=== PATIENT | female | born 1940 | race Caucasian/White ===

== ENCOUNTER 2018-06-22 14:48 | Emergency (ER) | payer MEDICARE, BC ==
[2013-11-08 14:31] VITALS: Wt 154.2 kg
[~2018-06-22 14:48] MED LIST changes: -ACET-1966 PO; -ASCO-182 PO; -CARV25TA78 PO; -CHOL10005 PO; -MULT1CAP59 PO; -PREG150C33 PO; -WARF1TAB15 PO; -WARFARIN SODIUM PO
[2018-06-22 14:51] VITALS: BP 161/84
[2018-06-22] MEDS ORDERED: KETOROLAC 60 MG/2 ML VIAL IM ONE (14:55)
--- NOTE | 2018-06-22 15:03 | ER Report ---
History and Physical Time Seen By MD: 15:01 Hx. of Stated Complaint: PATIENT REPORTS BACK PAIN FOR 1 WEEK. REPORTS PAIN HAS BEEN GETTING WORSE AND STARTED WHEN SHE WAS LIFTING SOMETHING WHILE CLEANING THE HOUSE. PATIENT RECIEVED 2MG IV ATIVAN FROM EMS AND REPORTS IMPROVEMENT OF SYMPTOMS HPI/ROS CHIEF COMPLAINT: Acute on chronic back pain HISTORY OF PRESENT ILLNESS: 78-year-old female long history of chronic back and pain disorders including polymyalgia rheumatica fibromyalgia and other chronic conditions currently being followed as an outpatient has been weaned off significant amounts of pain medication comes in today with a 24 hours of exacerbation after Superbowl Wednesday says that since then she's been having trouble ambulating getting around pain is localized to her low back no urinary bladder bowel incontinence and numbness of subtle paresthesias no chest pain or shortness of breath no recent falls history of trauma spoke directly to primary care doc will consulted with her history I will go ahead and I work her up in the ED for acute on chronic back pain REVIEW OF SYSTEMS: Respiratory: No cough, no dyspnea. Cardiovascular: No chest pain, no palpitations. Gastrointestinal: No vomiting, no abdominal pain. Musculoskeletal: Low back pain Remainder of the 14 system rev: Yes Allergies: Coded Allergies: codeine (Verified Allergy, Mild, 11/27/13) iodine (Verified Allergy, Mild, 11/27/13) morphine (Verified Allergy, Mild, 11/27/13) Home Meds Active Scripts [Warfarin Sod] 2 MG TAB No Conflict Check, 2 MG PO QDAY@13, TAB Prov:MURTAZA HARVEY DO 11/08/13 [Pregabalin] 50 MG CAP No Conflict Check, 150 MG PO TID, CAP Prov:MURTAZA HARVEY DO 11/08/13 Carvedilol (CARVEDILOL) 6.25 Mg Tab, 6.25 MG PO BID, #60 TAB Prov:MURTAZA HARVEY DO 11/08/13 Reported Medications Venlafaxine Hcl (VENLAFAXINE HCL ER) 37.5 Mg Cap.er.24h, 37.5 MG PO QDAY 11/08/13 Discontinued Scripts [Warfarin Sod] 1 MG TAB No Conflict Check, 2 MG PO QDAY@13, TAB Prov:ESME BELLO MD 11/22/13 [Venlafaxine Hcl] 37.5 MG CAPCR No Conflict Check, 37.5 MG PO QDAY Prov:ESME BELLO MD 11/22/13 [Tramadol Hcl] 50 MG TAB No Conflict Check, 50 MG PO Q6H PRN for PAIN, TAB Prov:ESME BELLO MD 11/22/13 [Pregabalin] 50 MG CAP No Conflict Check, 150 MG PO TID, CAP Prov:ESME BELLO MD 11/22/13 [Oxycodone Hcl] 20 MG TABCR No Conflict Check, 20 MG PO BID PRN for PAIN Prov:ESME BELLO MD 11/22/13 [Oxycodone Hcl] 5 MG CAP No Conflict Check, 5-10 MG PO Q6H PRN for PAIN, CAP Prov:ESME BELLO MD 11/22/13 Menthol/Methyl Salicylate (BENGAY GREASELESS CREAM) 57 Gm Oint, 0 GM TP BID PRN for arthralgias, #1 TUBE Prov:ESME BELLO MD 11/22/13 Carvedilol (CARVEDILOL) 3.125 Mg Tab, 3.125 MG PO BID, #60 TAB Prov:ESME BELLO MD 11/22/13 Allopurinol (ZYLOPRIM 300 MG TAB (OR EQUIV)) 300 Mg Tab, 300 MG PO QDAY, #30 TAB Prov:ESME BELLO MD 11/22/13 [Trimethoprim/Sulfamethoxazole] 1 EACH TAB No Conflict Check, 1 EACH PO BID, TAB Prov:MURTAZA HARVEY DO 11/08/13 [Nystatin] 15 GM CR No Conflict Check, 0 GM TP TID Prov:MURTAZA HARVEY DO 11/08/13 [Oxycodone Hcl] 5 MG CAP No Conflict Check, 10 MG PO QID PRN for PAIN, CAP Prov:MURTAZA HRAVEY DO 11/08/13 [Hydrochlorothiazide] 25 MG TAB No Conflict Check, 25 MG PO QDAY, TAB Prov:MURTAZA HARVEY DO 11/08/13 Reviewed Nurses Notes: Yes Old Medical Records Reviewed: Yes Hx Smoking: No Smoking Status: Never Smoker Exposure to Second Hand Smoke?: No Hx Substance Use Disorder: No Hx Alcohol Use: No Constitutional Vital Sign - Last 24 Hours 06/22/18 14:51 Temp 97.9 Pulse 70 Resp 20 B/P (MAP) 161/84 Pulse Ox 95 O2 Delivery Nasal Cannula Physical Exam General Appearance: [The patient is alert, has no immediate need for airway protection and no current signs of toxicity.] Appears uncomfortable Eyes: Pupils equal and round no injection. Respiratory: Chest is non tender, lungs are clear to auscultation. Cardiac: regular rate and rhythm [ ] Gastrointestinal: Abdomen is soft and non tender, no masses, bowel sounds normal. Musculoskeletal: Low back examination difficult to appreciate some mild tenderness to palpation to the lumbar area unable to do leg lifts due to patient's discomfort and complaints to the exam Neck is supple and non tender. Extremities have full range of motion and are non tender. Skin: No rashes or lesions. [ ] DIFFERENTIAL DIAGNOSIS: After history and physical exam differential diagnosis was considered for acute and chronic low back pain fracture dislocation subluxation Medical Decision Making Data Points Laboratory Hematology Test 06/22/18 16:50 Urine Color Yellow Urine Clarity Clear Urine pH 5.0 pH (4.8-9.5) Urine Specific [place] 1.015 Urine Protein Negative mg/dL (NEGATIVE) Urine Glucose (UA) Negative mg/dL (NEGATIVE) Urine Ketones Negative mg/dL (NEGATIVE) Urine Blood Moderate (NEGATIVE) Urine Nitrite Negative (NEGATIVE) Urine Bilirubin Negative (NEGATIVE) Urine Urobilinogen Negative mg/dL (0.2-1.9) Urine Leukocyte Esterase Negative (NEGATIVE) Urine RBC 83 /HPF (0-2/HPF) Urine WBC 4 /HPF (0-5/HPF) Urine Squamous Epithelial Cells Many /LPF (NONE-FEW) Urine Bacteria Negative /HPF (NONE-FEW) Urine Hyaline Casts Few /LPF (NONE-FEW) Urine Mucus None /HPF (NONE-FEW) Chemistry Test 06/22/18 16:50 Urine Color Yellow Urine Clarity Clear Urine pH 5.0 pH (4.8-9.5) Urine Specific [place] 1.015 Urine Protein Negative mg/dL (NEGATIVE) Urine Glucose (UA) Negative mg/dL (NEGATIVE) Urine Ketones Negative mg/dL (NEGATIVE) Urine Blood Moderate (NEGATIVE) Urine Nitrite Negative (NEGATIVE) Urine Bilirubin Negative (NEGATIVE) Urine Urobilinogen Negative mg/dL (0.2-1.9) Urine Leukocyte Esterase Negative (NEGATIVE) Urine RBC 83 /HPF (0-2/HPF) Urine WBC 4 /HPF (0-5/HPF) Urine Squamous Epithelial Cells Many /LPF (NONE-FEW) Urine Bacteria Negative /HPF (NONE-FEW) Urine Hyaline Casts Few /LPF (NONE-FEW) Urine Mucus None /HPF (NONE-FEW) Urinalysis Test 06/22/18 16:50 Urine Color Yellow Urine Clarity Clear Urine pH 5.0 pH (4.8-9.5) Urine Specific [place] 1.015 Urine Protein Negative mg/dL (NEGATIVE) Urine Glucose (UA) Negative mg/dL (NEGATIVE) Urine Ketones Negative mg/dL (NEGATIVE) Urine Blood Moderate (NEGATIVE) Urine Nitrite Negative (NEGATIVE) Urine Bilirubin Negative (NEGATIVE) Urine Urobilinogen Negative mg/dL (0.2-1.9) Urine Leukocyte Esterase Negative (NEGATIVE) Urine RBC 83 /HPF (0-2/HPF) Urine WBC 4 /HPF (0-5/HPF) Urine Squamous Epithelial Cells Many /LPF (NONE-FEW) Urine Bacteria Negative /HPF (NONE-FEW) Urine Hyaline Casts Few /LPF (NONE-FEW) Urine Mucus None /HPF (NONE-FEW) ED Course/Re-evaluation ED Course ED clinical course 78-year-old female who comes in with acute on chronic back discomfort x-rays show no fractures dislocation or subluxation spoke to primary care will see her 1st thing tomorrow I confirm that she has a safe way to get home and she has a safe environment at home and she has family with her she's agreeable to this plan I will check UA before discharge patient we diagnosed with acute on chronic back discomfort x-rays did show a degenerative disc disease spondylosis and chronic changes with nothing acute Decision to Disposition Date: Jun 22, 2018 Decision to Disposition Time: 16:30 Depart Departure Latest Vital Signs Vital Signs Date Time Temp Pulse Resp B/P (MAP) Pulse Ox O2 Delivery O2 Flow Rate FiO2 06/22/18 14:51 97.9 70 20 161/84 95 Nasal Cannula Impression: Primary Impression: Acute exacerbation of chronic low back pain Condition: Improved Disposition: HOME OR SELF-CARE Referrals: MURTAZA MEJÍA MD (PCP) 1 Day Patient Instructions: Chronic Back Pain (ED) MARY BETH MARLEY MD Jun 22, 2018 15:03
[2018-06-22] MEDS ORDERED: KETOROLAC 30 MG/ML VIAL IVP ONE (15:40)
--- NOTE | 2018-06-22 16:14 | RADIOLOGY IMAGING REPORT ---
FACILITY: [facility] PATIENT NAME: Chastity Barrios : 1940 MR: [id number] V: [id number] EXAM DATE: ORDERING PHYSICIAN: MARY BETH MARLEY TECHNOLOGIST: Location: [facility] Patient: Chastity Barrios : 1940 Visit/Account:[id number] Date of Sevice: 06/22/2018 Exam type: L-SPINE 2 OR 3 VIEW History: Low back pain x4 days, Comparison: CT lumbar spine March 24, 2011. Findings: The study is very limited due to patient's large body habitus. There appear to be multilevel spondyl otic changes most prominent in the lower lumbar spine. On the lateral view of the lower lumbar verte bra cannot be imaged due to overlapping soft tissues. Incidentally noted is moderate gaseous distent ion of the colon. There are severe degenerative changes of both hip joints IMPRESSION: 1. There is extremely limited due to patient's large body habitus. There appear to multilevel spond ylotic changes however on the lateral view the lower lumbar vertebra cannot be imaged due to overlapp ing soft tissues Severe degenerative changes of both hip joints Incidentally noted is moderate gaseous distention of the colon Report Dictated By: Stacy García MD at 06/22/2018 4:06 PM Report E-Signed By: Stacy García MD at 06/22/2018 4:09 PM WSN:[id number]
== END 2018-06-22 18:00 | disposition home or self-care (01) ==
LOC: ER 14:56
DX: M54.5 Low back pain (principal); G89.29 Other chronic pain
CPT/HCPCS: 72100; 81001; 96374; 99283; A4353; J1885

== ENCOUNTER → 2018-06-22 | Outpatient (CLI) | payer MEDICARE, BC ==
[2013-11-08 14:31] VITALS: BMI 53.3
[~2018-06-22] MED LIST: ACE325 PO; ACET-1966 PO; ALL300 PO; AMLO-127 PO; AMLO-98 PO; AMLO1TAB PO; ASC500 PO; ASCO-182 PO; BENGAY TP; CAR3.125 PO; CAR6.25 PO; CARV25TA78 PO; CARV6.2574 PO; CHOL100011 FT; CHOL10005 PO; CIPR-212 PO; DEX1 PO; ENAL20TA99 PO; ERG400 PO; FURO-43 PO; Hydrochlorothiazide PO; LID5T TOP; LISI-355 PO; METH4TAB57 PO; METXL50 PO; MILN50TA6 PO; MIR PO; MOM PO; MULT-820 PO; MULT1CAP59 PO; MULTI VIT; NOR25 PO; NYST1POW MC; Nystatin TP; OXYC10TA67 PO; Oxycodone Hcl PO; PER PO; PREG150C33 PO; PREG150C34 PO; Pregabalin PO; TRA50 PO; TRAM-420 PO; TRIC15T TOP; Tramadol Hcl PO; Trimethoprim/Sulfamethoxazole PO; VENL37.514 FT; VENL37.53 PO; Venlafaxine Hcl PO; WAR5 PO; WARF1TAB15 PO; WARF3TAB36 PO; WARFARIN SODIUM PO; Warfarin Sod PO; [UNRECOGNIZED DRUG - CODE]
== END ==
LOC: AMB 14:19
PROVIDERS: ATTEND Nurse Practitioner
DX: M54.5 Low back pain (principal); R09.02 Hypoxemia
CPT/HCPCS: A0425; A0427

== ENCOUNTER → 2018-06-22 | Outpatient (CLI) | payer MEDICARE, BC ==
[2018-06-30 10:19] VITALS: BMI 62.6
== END ==
LOC: AMB 17:48
PROVIDERS: ATTEND Nurse Practitioner
DX: M54.9 Dorsalgia, unspecified (principal); E66.9 Obesity, unspecified
CPT/HCPCS: A0425; A0428

== ENCOUNTER → 2018-06-28 | Outpatient (CLI) | payer MEDICARE, BC ==
[~2018-06-28] MED LIST changes: +ACET-1966 PO; +ASCO-182 PO; +CARV25TA78 PO; +CEPH500T7 PO; +CHOL10005 PO; +CYCL10TA29 PO; +DOCU-416 PO; +ENOX40DI9 SC; +MULT1CAP59 PO; +NYST15PO12 TP; +PREG150C33 PO; +WARF1TAB15 PO; +WARFARIN SODIUM PO
[2018-07-04 12:32] VITALS: BMI 62.6
== END ==
LOC: AMB 18:39
PROVIDERS: ATTEND Nurse Practitioner
DX: M54.9 Dorsalgia, unspecified (principal); R09.02 Hypoxemia; R53.1 Weakness; E66.9 Obesity, unspecified; Z74.01 Bed confinement status
CPT/HCPCS: A0425; A0429

== ENCOUNTER → 2018-07-07 | Outpatient (CLI) | payer MEDICARE, BC ==
[2018-07-04 12:32] VITALS: BMI 62.6
== END ==
LOC: AMB 13:25
PROVIDERS: ATTEND Nurse Practitioner
DX: M54.9 Dorsalgia, unspecified (principal)
CPT/HCPCS: A0425; A0428

== ENCOUNTER 2018-09-25 20:54 | Inpatient (IN) | payer MEDICARE, BC ==
[~2018-09-25] VITALS: Ht 167.6 cm; Wt 176.4 kg
[~2018-09-25 20:54] MED LIST changes: -NITR50CA35 PO
--- NOTE | 2018-09-25 21:19 | ER Report ---
History and Physical Time Seen By MD: 21:19 Hx. of Stated Complaint: Pt. had a recent UTI, still having symptoms. Hypoxic when delimer arrived. 89% on 4Lnc. 95% on NRB 15L. Also complaining of right knee pain. Temp in triage 101.9 orally. Pt's reports she is confused, and that isn't normal for her. HPI/ROS CHIEF COMPLAINT: Short of breath HISTORY OF PRESENT ILLNESS: This is a 78-year-old female. She is brought to the ER by EMS. She is having significant weakness. Very short of breath today at home. Recently in the hospital and treated for UTI. Finished her antibiotic and is now starting on Macrobid 50 mg once a day. Still having urinary frequency, and urgency. Yesterday she was very weak and fell and has pain in her right knee and right hip. She is also complaining of some back pain which has been impro ving and this is from recent compression fractures in the lumbar spine. EMS was called to her home because of the shortness of breath and weakness and found her to be hypoxic. She is usually on 4 L by nasal cannula and was found to be in the 80s. She is 95% on a nonrebreather at 15 L when EMS brought her in. This was decreased to 10 L and she was maintaining her sats about 94%. Temperature of 101.9 orally on triage. also reports that she has been having brief episodes of confusion at home. She has felt flushed at times and has been having subjective fevers as well as the fever found here in the ER. She has a mild cough. She denies any chest pain. She is had a little bit of nausea but no vomiting. REVIEW OF SYSTEMS: Constitutional: As above. Cannot stand or transfer at this time. Eyes: No vision changes. ENT: No sore throat. No congestion. Cardiovascular: No chest pain. No palpitations. Respiratory: As above. Gastrointestinal: No abdominal pain. Genitourinary: As above. Musculoskeletal: As above. Skin: Excoriations of the groin and perineal area, very tender. Neurological: As above. Allergies: Coded Allergies: codeine (Verified Allergy, Mild, 09/25/18) iodine (Verified Allergy, Mild, 09/25/18) morphine (Verified Allergy, Mild, 09/25/18) Home Meds Active Scripts Tramadol Hcl (TRAMADOL HCL) 50 Mg Tablet, 50 MG PO Q6H PRN for PAIN, #60 TAB Prov:ADILENE ANGELES [facility] 07/07/18 Nystatin (NYAMYC) 15 Gm Powder, 1 GM TP BID, #30 GM Prov:ADILENE ANGELES [facility] 07/07/18 Cyclobenzaprine Hcl (CYCLOBENZAPRINE HCL) 10 Mg Tablet, 5 MG PO Q8H PRN for MUSCLE SPASMS, #20 TAB Prov:ADILENE ANGELES [facility] 07/07/18 Reported Medications Nitrofurantoin Macrocrystal (NITROFURANTOIN) 50 Mg Capsule, 50 MG PO QDAY, CAPSULE 09/26/18 Cholecalciferol (Vitamin D3) (VITAMIN D3) 1,000 Unit Tablet, 2000 UNIT PO QDAY, TAB 06/29/18 Ascorbic Acid (VITAMIN C) 500 Mg Tablet, 500 MG PO QDAY, TAB 06/29/18 Multivitamin (MULTIVITAMINS) 1 Each Capsule, 1 EACH PO QDAY, CAPSULE 06/29/18 Carvedilol (CARVEDILOL) 25 Mg Tablet, 25 MG PO BID, #10 TAB 06/29/18 Warfarin Sodium (WARFARIN SODIUM) 1 Mg Tablet, 1 MG PO QDAY, TAB 06/29/18 Pregabalin (LYRICA) 150 Mg Capsule, 150 MG PO TID, CAPSULE 06/29/18 Venlafaxine Hcl (VENLAFAXINE HCL ER) 37.5 Mg Cap.er.24h, 37.5 MG PO QDAY 11/08/13 Discontinued Reported Medications Cephalexin 500 Mg Tab (KEFLEX 500 MG TAB) 500 Mg Tablet, 500 MG PO BID, #28 TAB Starting on July 14 take twice a day 07/07/18 Cephalexin 500 Mg Tab (KEFLEX 500 MG TAB) 500 Mg Tablet, 500 MG PO QID for 7 Days, TAB Take Four times a day for 7 days then twice a day thereafter 07/07/18 Discontinued Scripts Docusate Sodium (COLACE) 100 Mg Capsule, 100 MG PO BID, #60 CAPSULE Prov:ADILENE ANGELES [facility] 07/07/18 Enoxaparin Sodium (ENOXAPARIN SODIUM) 40 Mg/0.4 Ml Disp.syrin, 40 MG SC QDAY, #5 SYR Prov:ADILENE ANGELES [facility] 07/07/18 Reviewed Nurses Notes: Yes Hx Smoking: No Smoking Status: Never Smoker Exposure to Second Hand Smoke?: No Hx Substance Use Disorder: No Hx Alcohol Use: No Constitutional Vital Sign - Last 24 Hours 09/25/18 09/25/18 09/25/18 09/25/18 21:01 21:01 21:06 21:09 Temp 101.9 Pulse 90 92 Resp 28 15 B/P (MAP) 117/75 117/75 (89) Pulse Ox 94 O2 Delivery Non-Rebreather O2 Flow Rate 10.0 09/25/18 09/25/18 09/25/18 09/25/18 21:24 21:30 21:39 21:54 Pulse 91 87 85 Resp 23 23 16 B/P (MAP) 115/65 (82) Pulse Ox 95 95 95 09/25/18 09/25/18 09/25/18 09/25/18 22:00 22:00 22:00 22:09 Pulse 84 89 Resp 22 14 B/P (MAP) 113/67 (82) Pulse Ox 95 91 O2 Delivery Non-Rebreather O2 Flow Rate 10.0 09/25/18 09/25/18 09/25/18 09/25/18 22:09 22:24 22:39 22:44 Pulse 86 84 90 93 Resp 22 22 16 13 Pulse Ox 94 95 95 09/25/18 09/25/18 09/25/18 09/25/18 22:59 23:14 23:29 23:30 Pulse 89 79 79 Resp 26 19 29 B/P (MAP) ???/??? (5195) Pulse Ox 94 91 94 09/25/18 09/25/18 09/25/18 09/26/18 23:44 23:54 23:59 00:00 Pulse ??? 73 Resp 22 B/P (MAP) 123/75 (91) 122/63 (82) Pulse Ox 95 09/26/18 09/26/18 09/26/18 09/26/18 00:14 00:29 00:30 00:30 Temp 98.3 Pulse 74 75 Resp 20 15 B/P (MAP) 123/68 (86) Pulse Ox 95 94 5/13/19 5/13/19 5/13/19 5/13/19 00:35 00:40 00:45 01:00 Pulse 76 72 75 Resp 17 24 21 B/P (MAP) 127/84 (98) Pulse Ox 95 86 91 09/26/18 09/26/18/09/26/18 01:05 01:10 01:15 01:20 Pulse 70 70 70 69 Resp 21 22 21 20 Pulse Ox 94 95 95 95 09/26/18//09/26/18 01:25 01:30 01:35 01:40 Pulse 69 68 69 76 Resp 16 18 20 B/P (MAP) 132/74 (93) Pulse Ox 95 95 95 09/26/18 09/26/18/09/26/18 01:45 01:55 02:00 02:05 Pulse 68 67 73 73 Resp 15 18 21 17 B/P (MAP) 142/91 (108) Pulse Ox 94 95 90 94 09/26/18 09/26/18/09/26/18 02:15 02:20 02:25 02:30 Pulse 70 70 71 73 Resp 14 15 20 30 B/P (MAP) 132/79 (96) Pulse Ox 96 93 94 90 09/26/18//09/26/18 02:40 02:50 02:55 03:00 Pulse 71 71 72 70 Resp 8 14 30 15 B/P (MAP) 119/73 (88) Pulse Ox 93 94 92 91 09/26/18 09/26/18/09/26/18 03:05 03:10 03:15 03:20 Pulse 71 63 68 69 Resp 11 19 27 14 Pulse Ox 92 92 93 92 09/26/18//09/26/18 03:25 03:30 03:35 03:40 Pulse 69 67 69 77 Resp 14 19 8 27 B/P (MAP) 124/75 (91) 115/87 (96) 110/88 (95) Pulse Ox 93 94 90 94 09/26/18 09/26/18/09/26/18 03:45 03:50 03:55 04:00 Pulse 75 63 64 66 Resp 34 19 12 20 B/P (MAP) 106/62 (77) 98/63 (75) 107/64 (78) 82/67 (72) Pulse Ox 90 86 91 94 09/26/18 09/26/18 09/26/18 09/26/18 04:05 04:10 04:15 04:20 Pulse 68 65 66 67 Resp 30 27 18 23 B/P (MAP) 122/67 (85) 118/87 (97) 114/79 (91) 121/78 (92) Pulse Ox 94 95 93 94 09/26/18 09/26/18 09/26/18 09/26/18 04:25 04:30 04:35 04:45 Pulse 65 68 64 67 Resp 12 11 14 B/P (MAP) 113/82 (92) 121/79 (93) Pulse Ox 93 95 95 09/26/18 09/26/18 09/26/18 09/26/18 04:50 04:55 05:00 05:05 Pulse 70 68 67 66 Resp 9 12 14 22 B/P (MAP) 129/91 (104) Pulse Ox 96 95 90 95 09/26/18 09/26/18 09/26/18 09/26/18 05:10 05:15 05:20 05:25 Pulse 66 68 69 67 Resp 17 15 12 19 Pulse Ox 96 96 96 97 09/26/18 09/26/18 05:30 05:35 Pulse 69 68 Resp 11 18 B/P (MAP) 131/106 (114) Pulse Ox 86 95 Intake and Output 09/25/18 09/25/18 09/26/18 15:00 23:00 07:00 Output Total 350 ml Balance -350 ml Physical Exam General Appearance: The patient is alert. No acute distress. Extremely weak. Morbidly obese. Eyes: Pupils are equal, round. No pallor, injection or icterus. ENT: Mucous membranes are dry. Otherwise normal oral mucosa. Posterior oropharynx is normal. Normal tympanic membranes and canals. Neck: Supple and non tender. Respiratory: Lungs are diminished, there are rhonchi throughout, more diminished in the bases. She seems to be breathing easier on the nonrebreather with less work. I do not see any accessory muscle use. Cardiovascular: Regular rate and rhythm. No murmurs, gallops or rubs. Normal capillary refill. Has edema in the legs. Gastrointestinal: Abdomen without any focal tenderness on palpation. Nondistended. Normal active bowel sounds. Genitourinary: Excoriation and bleeding in the skin folds and perineal area. Neurological: Alert and oriented x3. No current confusion. Skin: Warm and dry. Excoriation is noted. Musculoskeletal: Significant pain in the right hip and right knee with any movement. Is unable to bear weight. Has some pain in the lower back but that has been improving and appears due to her compression fractures. Full range of motion. DIFFERENTIAL DIAGNOSIS: After history and physical exam, differential diagnosis was considered for patient with shortness of breath and hypoxia, fevers, some episodes of confusion today, and recent urinary problems. Medical Decision Making Data Points Result Diagram: 09/25/18210609/25/182106 Laboratory Hematology Test 09/25/18 00:00 09/25/18 21:07 09/25/18 22:13 09/26/18 03:48 Lactate 1.1 mmol/L (0.7-2.1) Red Blood Count 4.70 M/uL (4.17-5.56) Mean Corpuscular Volume 95.7 fL (80.0-96.0) Mean Corpuscular Hemoglobin 32.5 pg (26.0-33.0) Mean Corpuscular Hemoglobin Concent 33.9 g/dL (32.0-36.0) Red Cell Distribution Width 14.1 % (11.5-14.5) Mean Platelet Volume 9.0 fL (7.2-11.1) Neutrophils (%) (Auto) 77.5 % (39.4-72.5) Lymphocytes (%) (Auto) 10.3 % (17.6-49.6) Monocytes (%) (Auto) 9.5 % (4.1-12.4) Eosinophils (%) (Auto) 2.3 % (0.4-6.7) Basophils (%) (Auto) 0.4 % (0.3-1.4) Nucleated RBC Relative Count (auto) 0.1 /100WBC Neutrophils # (Auto) 8.1 K/uL (2.0-7.4) Lymphocytes # (Auto) 1.1 K/uL (1.3-3.6) Monocytes # (Auto) 1.0 K/uL (0.3-1.0) Eosinophils # (Auto) 0.2 K/uL (0.0-0.5) Basophils # (Auto) 0.0 K/uL (0.0-0.1) Nucleated RBC Absolute Count (auto) 0.02 K/uL Prothrombin Time 20.0 seconds (12.0-14.4) Prothromb Time International Ratio 1.68 Sodium Level 136 mmol/L (137-145) Potassium Level 4.6 mmol/L (3.5-5.0) Chloride Level 101 mmol/L (98-107) Carbon Dioxide Level 31 mmol/L (22-31) Blood Urea Nitrogen 13 mg/dl (7-18) Creatinine 0.80 mg/dl (0.52-1.04) Glomerular Filtration Rate Calc > 60.0 Random Glucose 128 mg/dl (75-110) Calcium Level 8.4 mg/dl (8.4-10.2) Magnesium Level 1.9 mg/dl (1.7-2.2) Total Bilirubin 0.5 mg/dl (0.2-1.3) Aspartate Amino Transf (AST/SGOT) 43 U/L (0-35) Alanine Aminotransferase (ALT/SGPT) 25 U/L (0-56) Alkaline Phosphatase 119 U/L (0-126) B-Type Natriuretic Peptide 268 pg/ml (0-100) Total Protein 7.4 g/dl (6.3-8.2) Albumin 3.6 g/dl (3.5-5.0) Influenza Virus Type A (PCR) Negative (NEGATIVE) Influenza Virus Type B (PCR) Negative (NEGATIVE) Urine Color Yellow Urine Clarity Clear Urine pH 5.0 pH (4.8-9.5) Urine Specific [place] 1.015 Urine Protein 30 mg/dL (NEGATIVE) Urine Glucose (UA) Negative mg/dL (NEGATIVE) Urine Ketones Trace mg/dL (NEGATIVE) Urine Blood Small (NEGATIVE) Urine Nitrite Negative (NEGATIVE) Urine Bilirubin Negative (NEGATIVE) Urine Urobilinogen Negative mg/dL (0.2-1.9) Urine Leukocyte Esterase Negative (NEGATIVE) Urine RBC 2 /HPF (0-2/HPF) Urine WBC 1 /HPF (0-5/HPF) Urine Squamous Epithelial Cells Few /LPF (NONE-FEW) Urine Transitional Epithelial Cells Few /LPF (NONE-FEW) Urine Bacteria Negative /HPF (NONE-FEW) Urine Mucus Few /HPF (NONE-FEW) Test 09/26/18 04:48 Troponin I < 0.012 ng/ml Chemistry Test 09/25/18 00:00 09/25/18 21:07 09/25/18 22:13 09/26/18 03:48 Lactate 1.1 mmol/L (0.7-2.1) White Blood Count 10.5 k/uL (4.5-11.0) Red Blood Count 4.70 M/uL (4.17-5.56) Hemoglobin 15.3 g/dL (12.0-16.0) Hematocrit 45.0 % (34.0-47.0) Mean Corpuscular Volume 95.7 fL (80.0-96.0) Mean Corpuscular Hemoglobin 32.5 pg (26.0-33.0) Mean Corpuscular Hemoglobin Concent 33.9 g/dL (32.0-36.0) Red Cell Distribution Width 14.1 % (11.5-14.5) Platelet Count 145 K/uL (150-450) Mean Platelet Volume 9.0 fL (7.2-11.1) Neutrophils (%) (Auto) 77.5 % (39.4-72.5) Lymphocytes (%) (Auto) 10.3 % (17.6-49.6) Monocytes (%) (Auto) 9.5 % (4.1-12.4) Eosinophils (%) (Auto) 2.3 % (0.4-6.7) Basophils (%) (Auto) 0.4 % (0.3-1.4) Nucleated RBC Relative Count (auto) 0.1 /100WBC Neutrophils # (Auto) 8.1 K/uL (2.0-7.4) Lymphocytes # (Auto) 1.1 K/uL (1.3-3.6) Monocytes # (Auto) 1.0 K/uL (0.3-1.0) Eosinophils # (Auto) 0.2 K/uL (0.0-0.5) Basophils # (Auto) 0.0 K/uL (0.0-0.1) Nucleated RBC Absolute Count (auto) 0.02 K/uL Prothrombin Time 20.0 seconds (12.0-14.4) Prothromb Time International Ratio 1.68 Glomerular Filtration Rate Calc > 60.0 Calcium Level 8.4 mg/dl (8.4-10.2) Magnesium Level 1.9 mg/dl (1.7-2.2) Total Bilirubin 0.5 mg/dl (0.2-1.3) Aspartate Amino Transf (AST/SGOT) 43 U/L (0-35) Alanine Aminotransferase (ALT/SGPT) 25 U/L (0-56) Alkaline Phosphatase 119 U/L (0-126) B-Type Natriuretic Peptide 268 pg/ml (0-100) Total Protein 7.4 g/dl (6.3-8.2) Albumin 3.6 g/dl (3.5-5.0) Influenza Virus Type A (PCR) Negative (NEGATIVE) Influenza Virus Type B (PCR) Negative (NEGATIVE) Urine Color Yellow Urine Clarity Clear Urine pH 5.0 pH (4.8-9.5) Urine Specific [place] 1.015 Urine Protein 30 mg/dL (NEGATIVE) Urine Glucose (UA) Negative mg/dL (NEGATIVE) Urine Ketones Trace mg/dL (NEGATIVE) Urine Blood Small (NEGATIVE) Urine Nitrite Negative (NEGATIVE) Urine Bilirubin Negative (NEGATIVE) Urine Urobilinogen Negative mg/dL (0.2-1.9) Urine Leukocyte Esterase Negative (NEGATIVE) Urine RBC 2 /HPF (0-2/HPF) Urine WBC 1 /HPF (0-5/HPF) Urine Squamous Epithelial Cells Few /LPF (NONE-FEW) Urine Transitional Epithelial Cells Few /LPF (NONE-FEW) Urine Bacteria Negative /HPF (NONE-FEW) Urine Mucus Few /HPF (NONE-FEW) Test 09/26/18 04:48 Troponin I < 0.012 ng/ml Coagulation Test 09/25/18 21:07 Prothrombin Time 20.0 seconds Prothromb Time International Ratio 1.68 Urinalysis Test 09/26/18 03:48 Urine Color Yellow Urine Clarity Clear Urine pH 5.0 pH (4.8-9.5) Urine Specific [place] 1.015 Urine Protein 30 mg/dL (NEGATIVE) Urine Glucose (UA) Negative mg/dL (NEGATIVE) Urine Ketones Trace mg/dL (NEGATIVE) Urine Blood Small (NEGATIVE) Urine Nitrite Negative (NEGATIVE) Urine Bilirubin Negative (NEGATIVE) Urine Urobilinogen Negative mg/dL (0.2-1.9) Urine Leukocyte Esterase Negative (NEGATIVE) Urine RBC 2 /HPF (0-2/HPF) Urine WBC 1 /HPF (0-5/HPF) Urine Squamous Epithelial Cells Few /LPF (NONE-FEW) Urine Transitional Epithelial Cells Few /LPF (NONE-FEW) Urine Bacteria Negative /HPF (NONE-FEW) Urine Mucus Few /HPF (NONE-FEW) EKG/Imaging EKG Interpretation 12 lead EKG: At 21:51 hours Rhythm: normal sinus rhythm, rate 75 [place]: normal QRS: normal ST segments: normal 12 lead EKG: At 04:05 hours Rhythm: normal sinus rhythm, rate 64 [place]: normal QRS: normal ST segments: normal Imaging EXAMINATION: CT Chest Without Contrast 09/25/2018 10:16 PM HISTORY: Cough, shortness of breath, low O2 sats. TECHNIQUE: Spiral scan was obtained through the chest without contrast. One of the following dose optimization techniques was utilized in the performance of this exam: Automated exposure control; adjustment of the mA and/or kV according to the patient's size; or use of an iterative reconst ruction technique. Specific details can be referenced in the facility's radiology CT exam operational policy. COMPARISON STUDIES: Chest x-ray with acute abdominal series 11/27/2013. FINDINGS: Lungs / pleura: Small bilateral pleural effusions. Adjacent dependent parenchymal consolidation is probably simply atelectasis. No definite acute pneumonia. No airspace edema or interlobular septal thickening. No bronchiectasis or significant bronchial wall thickening. No mucoid impaction. There are a few 3 mm or less micronodules, largest in the lateral right middle lobe (series 3 image 47). Mediastinum / jose a: negative Heart / pericardium: negative Vessels: Atherosclerosis includes coronary disease. Musculoskeletal / Body wall: Degenerative changes in the spine and shoulders. Lymph node assessment: There probably some lower hilar lymph nodes on the left. Subcarinal lymph node 1.8 x 1.2 cm (series 2 image 44). Lateral AP window lymph node on the left 1.3 x 1.4 cm (image 35). Additional nonspecific mediastinal lymph nodes. No clear axillary or neck base adenopathy. Lower neck: negative Upper abdomen: Cholecystectomy. IMPRESSION: 1. Small bilateral pleural effusions. Adjacent consolidation is probably simply atelectasis. No definite focal pneumonia. 2. 3 mm or less pulmonary micronodules. Based on size these would not require follow-up unless otherwise clinically indicated. 3. Mild nonspecific mediastinal and probably left hilar adenopathy. 4. Atherosclerosis includes coronary disease. Report Dictated By: Carroll John MD at 09/26/2018 12:03 AM EXAMINATION: CT of the right hip without contrast 09/26/2018 12:24 AM HISTORY: fall, hip pain TECHNIQUE: Unenhanced helical imaging of the right hip was done with imaging acquired in the axial plane. Sagittal and coronal reconstructions are provided from the source data. Data is reconstructed with soft tissue and bony reconstruction algorithms. One of the following dose optimization techniques was utilized in the performance of this exam: Automated exposure control; adjustment of the mA and/or kV according to the patient's size; or use of an iterative reconstruction technique. Specific details can be referenced in the facility's radiology CT exam operational policy. COMPARISON: CT abdomen and pelvis 07/02/2018 FINDINGS: Musculoskeletal: Severe osteoarthritis of the right hip. Virtually complete joint space loss. Prominent marginal osteophytes of the femoral head and acetabular margin. No significant inflammatory erosive component evident. No visible effusion. No fracture or other acute bony finding evident. Remainder of visualized bony pelvis is intact. Soft tissues: No focal soft tissue swelling or hematoma evident. No inguinal adenopathy. Atherosclerotic vascular calcifications. Patient is status post hysterectomy. Visualized bowel loops in the pelvis are unremarkable. IMPRESSION: Severe osteoarthritis of the right hip. No acute bony injury. Report Dictated By: Carroll John MD at 09/26/2018 1:09 AM EXAMINATION: Right knee, 4 views 09/25/2018 9:39 PM HISTORY: fall, hip and knee pain COMPARISON: None FINDINGS: Previous right TKA. Prosthetic components are articulating appropriately and are well seated. No acute bony finding in the evident. No visible joint effusion although the lateral projection is not optimal. IMPRESSION: Previous right TKA. No acute bony finding. Report Dictated By: Carroll John MD at 09/26/2018 2:55 AM ED Course/Re-evaluation Clinical Indication for ER IV: Hydration, IV Access ED Course Labs were obtained, the patient has a normal white count. Mildly low platelets. Normal H&H. Mildly decreased sodium. Serum BUN and creatinine are fairly normal At 13 and 0.8. Initial troponin negative. BNP is not significantly elevated. 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 She is having some shortness of breath but no real sharp pain with deep breaths. Unable to do a catheter urine, initial urine that was sent was from a bedpan and does appear c ontaminated. Later on in the stay we did use some propofol for sedation in order to get a urinary catheter placed and a urine was sent with the catheter urine, does not look too bad. Initial EKG shows no signs of ischemia. CT scan obtained and shows small pleural effusions some adenopathy and what looks like either atelectasis or consolidation, radiology favors this being atelectasis. Unable to tell why she is having fevers. This may be due to the severe excoriation and bleeding in the skin folds in the perineal area. I discussed the case with Dr. Foss who accepted the patient for admission to [facility]. Repeat troponin and EKG were done as well. Because we're concerned about the possibility of mobility of PE and we cannot do a CT angiogram because of her iodine allergy, we will consider doing a V/Q scan at some point during her hospital stay and are going to ahead and start her on Lovenox at this time. Decision to Disposition Date: September 26, 2018 Decision to Disposition Time: 05:22 Depart Departure Latest Vital Signs Vital Signs Date Time Temp Pulse Resp B/P (MAP) Pulse Ox O2 Delivery O2 Flow Rate FiO2 09/26/18 05:35 68 18 95 09/26/18 05:30 131/106 (114) 09/26/18 00:30 98.3 09/25/18 22:00 Non-Rebreather 10.0 Impression: Primary Impression: Fever Additional Impressions: Shortness of breath Weakness generalized Condition: Condition Unchanged Disposition: Admitted from ER Referrals: MURTAZA MEJÍA MD (PCP) Problem Qualifiers Primary Impression: Fever Fever type: unspecified Qualified Codes: R50.9 - Fever, unspecified MONIQUE AUGUST MD September 25, 2018 21:19
[2018-09-25] MEDS ORDERED: ALBUTEROL/IPRATROPIUM 3 ML NEB NEB ONE (21:40)
[2018-09-25 21:53] LABS: PLATELET COUNT, AUTOMATED 145 K/uL (150-450)
[2018-09-25] MEDS ORDERED: ACETAMINOPHEN 500 MG TAB PO ONE (21:55)
[2018-09-25] MEDS ORDERED: NS(*) 0.9% 1000 ML BAG 1,000 ML IV ONE (21:55)
[2018-09-25 21:58] LABS: INR 1.68
--- NOTE | 2018-09-25 23:19 | EKG ---
FACILITY: [facility] PATIENT NAME: ROQUE LEIVA : [id number] MR: [id number] V: [id number] EXAM DATE: ORDERING PHYSICIAN: MONIQUE AUGUST TECHNOLOGIST: IVETH Marx Reason : SOB Blood Pressure : / mmHG Vent. Rate : 085 BPM Atrial Rate : 085 BPM P-R Int : 174 ms QRS Dur : 080 ms QT Int : 346 ms P-R-T Axes : 045 039 069 degrees QTc Int : 411 ms Normal sinus rhythm Normal ECG When compared with ECG of 31-OCT-2013 16:40, No significant change was found Confirmed by ESME GANNON ([id number]) on 09/26/2018 6:28:45 AM Referred By: Confirmed By:ESME GANNON
--- NOTE | 2018-09-26 00:19 | RADIOLOGY IMAGING REPORT ---
FACILITY: [facility] PATIENT NAME: Chastity Barrios : 1940 MR: [id number] V: [id number] EXAM DATE: ORDERING PHYSICIAN: MONIQUE AUGUST TECHNOLOGIST: Location: [facility] Patient: Chastity Barrios : 1940 Visit/Account:[id number] Date of Sevice: 09/25/2018 EXAMINATION: CT Chest Without Contrast 09/25/2018 10:16 PM HISTORY: Cough, shortness of breath, low O2 sats. TECHNIQUE: Spiral scan was obtained through the chest without contrast. One of the following dose optimization techniques was utilized in the performance of this exam: Autom ated exposure control; adjustment of the mA and/or kV according to the patient's size; or use of an i terative reconstruction technique. Specific details can be referenced in the facility's radiology C T exam operational policy. COMPARISON STUDIES: Chest x-ray with acute abdominal series 11/27/2013. FINDINGS: Lungs / pleura: Small bilateral pleural effusions. Adjacent dependent parenchymal consolidation is pr obably simply atelectasis. No definite acute pneumonia. No airspace edema or interlobular septal thic kening. No bronchiectasis or significant bronchial wall thickening. No mucoid impaction. There are a few 3 mm or less micronodules, largest in the lateral right middle lobe (series 3 image 47). Mediastinum / jose a: negative Heart / pericardium: negative Vessels: Atherosclerosis includes coronary disease. Musculoskeletal / Body wall: Degenerative changes in the spine and shoulders. Lymph node assessment: There probably some lower hilar lymph nodes on the left. Subcarinal lymph node 1.8 x 1.2 cm (series 2 image 44). Lateral AP window lymph node on the left 1.3 x 1.4 cm (image 35). Additional nonspecific mediastinal lymph nodes. No clear axillary or neck base adenopathy. Lower neck: negative Upper abdomen: Cholecystectomy. IMPRESSION: 1. Small bilateral pleural effusions. Adjacent consolidation is probably simply atelectasis. No defin ite focal pneumonia. 2. 3 mm or less pulmonary micronodules. Based on size these would not require follow-up unless otherw ise clinically indicated. 3. Mild nonspecific mediastinal and probably left hilar adenopathy. 4. Atherosclerosis includes coronary disease. Report Dictated By: Carroll John MD at 09/26/2018 12:03 AM Report E-Signed By: Carroll John MD at 09/26/2018 12:14 AM [id number]
--- NOTE | 2018-09-26 01:19 | RADIOLOGY IMAGING REPORT ---
FACILITY: [facility] PATIENT NAME: Chastity Barrios : 1940 MR: [id number] V: [id number] EXAM DATE: ORDERING PHYSICIAN: MONIQUE AUGUST TECHNOLOGIST: Location: [facility] - [place] Patient: Chastity Barrios : 1940 Visit/Account:[id number] Date of Sevice: 09/26/2018 EXAMINATION: CT of the right hip without contrast 09/26/2018 12:24 AM HISTORY: fall, hip pain TECHNIQUE: Unenhanced helical imaging of the right hip was done with imaging acquired in the axial pl ane. Sagittal and coronal reconstructions are provided from the source data. Data is reconstructed wi th soft tissue and bony reconstruction algorithms. One of the following dose optimization techniques was utilized in the performance of this exam: Autom ated exposure control; adjustment of the mA and/or kV according to the patient's size; or use of an i terative reconstruction technique. Specific details can be referenced in the facility's radiology C T exam operational policy. COMPARISON: CT abdomen and pelvis 07/02/2018 FINDINGS: Musculoskeletal: Severe osteoarthritis of the right hip. Virtually complete joint space loss. Promine nt marginal osteophytes of the femoral head and acetabular margin. No significant inflammatory erosiv e component evident. No visible effusion. No fracture or other acute bony finding evident. Remainder of visualized bony pelvis is intact. Soft tissues: No focal soft tissue swelling or hematoma evident. No inguinal adenopathy. Atherosclero tic vascular calcifications. Patient is status post hysterectomy. Visualized bowel loops in the pelvi s are unremarkable. IMPRESSION: Severe osteoarthritis of the right hip. No acute bony injury. Report Dictated By: Carroll John MD at 09/26/2018 1:09 AM Report E-Signed By: Carroll John MD at 09/26/2018 1:14 AM WSN:[id number]
[2018-09-26] MEDS ORDERED: PROPOFOL EMUL 10MG/ML 20 ML VL IVP ONE (03:00)
--- NOTE | 2018-09-26 03:20 | RADIOLOGY IMAGING REPORT ---
FAC[place] [facility] [place]IENT NAME: Chastity Barrios : 1940 MR: [id number] V: [id number] EXAM DATE: ORDERING PHYSICIAN: MONIQUE AUGUST TECHNOLOGIST: [place] [facility] [place]: Chastity Barrios : 1940 Visit/Account:[id number] Date of Sevice: 09/25/2018 EXAMINATION: Right knee, 4 views 09/25/2018 9:39 PM HISTORY: fall, hip and knee pain COMPARISON: None FINDINGS: Previous right TKA. Prosthetic components are articulating appropriately and are well seat ed. No acute bony finding in the evident. No visible joint effusion although the lateral projection i s not optimal. IMPRESSION: Previous right TKA. No acute bony finding. Report Dictated By: Carroll John MD at 09/26/2018 2:55 AM Report E-Signed By: Carroll John MD at 09/26/2018 2:57 AM WSN:[id number]
[2018-09-26] MEDS ORDERED: NITR50CA35 PO (04:07)
[2018-09-26] MEDS ORDERED: fentaNYL CITR 100 MCG/2 ML AMP IVP ONE ×2 (04:10→06:05)
--- NOTE | 2018-09-26 04:22 | EKG ---
FACILITY: [facility] PATIENT NAME: ROQUE LEIVA : [id number] MR: [id number] V: [id number] EXAM DATE: ORDERING PHYSICIAN: MONIQUE AUGUST TECHNOLOGIST: IVETH Marx Reason : SOB Blood Pressure : / mmHG Vent. Rate : 064 BPM Atrial Rate : 064 BPM P-R Int : 188 ms QRS Dur : 080 ms QT Int : 418 ms P-R-T Axes : 056 050 081 degrees QTc Int : 431 ms Normal sinus rhythm Normal ECG When compared with ECG of 25-SEP-2018 21:51, No significant change was found Confirmed by ESME GANNON ([id number]) on 09/26/2018 6:28:12 AM Referred By: Confirmed By:ESME GANNON
[2018-09-26] MEDS: ENOXAPARIN 100 MG/ML SYR SC SCH ×2 (04:35→07:46)
[2018-09-26] MEDS ORDERED: NS(*) 0.9% 1000 ML BAG 1,000 ML IV PRN ×2 (05:44→21:26)
[2018-09-26] MEDS ORDERED: INFLUENZA VIRUS VAC 0.5ML SYR IM ONLY ONE (05:45)
--- NOTE | 2018-09-26 06:22 | History & Physical ---
History of Present Illness Chief Complaint Fever, generalized weakness. History of Present Illness The patient is a 78 year old female with PMH significant for hx of pulmonary embolism, morbid obesity and fibromyalgia who states that Wednesday she became weak and had a fall. EMS came to her home to help get her up. She declined to be evaluated in the ER at that time. She also felt lightheaded. She has felt feverish and has had chills. She has had some cough, productive of yellow sputum. She had been able to decrease her chronic O2 at home to 3L. The patient has a history of pulmonary embolism and is chronically anticoagulated with Coumadin. She denies chest pain. She has not felt particularly short of breath, just fatigued. She states her only symptom with her previous PEs was cough. History Problems: (1) Hypertension Status: Chronic (2) Peripheral edema Status: Chronic (3) Fibromyalgia Status: Chronic (4) Obstructive sleep apnea on CPAP Status: Chronic (5) Pulmonary embolism Status: Chronic (6) Hypercholesteremia Status: Chronic (7) Hypoxia Status: Acute Home Meds Active Scripts Tramadol Hcl (TRAMADOL HCL) 50 Mg Tablet, 50 MG PO Q6H PRN for PAIN, #60 TAB Prov:[facility] 07/07/18 Nystatin (NYAMYC) 15 Gm Powder, 1 GM TP BID, #30 GM Prov:[facility] 07/07/18 Cyclobenzaprine Hcl (CYCLOBENZAPRINE HCL) 10 Mg Tablet, 5 MG PO Q8H PRN for MUSCLE SPASMS, #20 TAB Prov:[facility] 07/07/18 Reported Medications Nitrofurantoin Macrocrystal (NITROFURANTOIN) 50 Mg Capsule, 50 MG PO QDAY, CAPSULE 09/26/18 Cholecalciferol (Vitamin D3) (VITAMIN D3) 1,000 Unit Tablet, 2000 UNIT PO QDAY, TAB 06/29/18 Ascorbic Acid (VITAMIN C) 500 Mg Tablet, 500 MG PO QDAY, TAB 06/29/18 Multivitamin (MULTIVITAMINS) 1 Each Capsule, 1 EACH PO QDAY, CAPSULE 06/29/18 Carvedilol (CARVEDILOL) 25 Mg Tablet, 25 MG PO BID, #10 TAB 06/29/18 Warfarin Sodium (WARFARIN SODIUM) 1 Mg Tablet, 1 MG PO QDAY, TAB 06/29/18 Pregabalin (LYRICA) 150 Mg Capsule, 150 MG PO TID, CAPSULE 06/29/18 Venlafaxine Hcl (VENLAFAXINE HCL ER) 37.5 Mg Cap.er.24h, 37.5 MG PO QDAY 11/08/13 Discontinued Reported Medications Cephalexin 500 Mg Tab (KEFLEX 500 MG TAB) 500 Mg Tablet, 500 MG PO BID, #28 TAB Starting on July 14 take twice a day 07/07/18 Cephalexin 500 Mg Tab (KEFLEX 500 MG TAB) 500 Mg Tablet, 500 MG PO QID for 7 Days, TAB Take Four times a day for 7 days then twice a day thereafter 07/07/18 Discontinued Scripts Docusate Sodium (COLACE) 100 Mg Capsule, 100 MG PO BID, #60 CAPSULE Prov:[facility] 07/07/18 Enoxaparin Sodium (ENOXAPARIN SODIUM) 40 Mg/0.4 Ml Disp.syrin, 40 MG SC QDAY, #5 SYR Prov:[facility] 07/07/18 Allergies: Coded Allergies: codeine (Verified Allergy, Mild, 09/25/18) iodine (Verified Allergy, Mild, 09/25/18) morphine (Verified Allergy, Mild, 09/25/18) Patient History: Angina Diabetes mellitus FATHER materal aunt FHx: skin cancer MOTHER FHx: stomach cancer paternal grandmother Phlebitis FATHER Other Social/Family Hx The patient lives at home withe her . She is retired. Hx Smoking: No Smoking Status: Never Smoker Exposure to Second Hand Smoke?: No Caffeine Intake: Coffee Caffeine/Cups Per Day: 2 Hx Alcohol Use: No Hx Substance Use Disorder: No Social Drug Use: Never History of IV Drug Use: No Review of Systems Constitutional: Fever, Chills Neurological: Weakness, Other (Has felt lightheaded at home.) Eyes: No Vision Change ENT: No Hearing Loss Cardiovascular: No Chest Pain Respiratory: Cough (Productive of yellow sputum.) Gastrointestinal: No Nausea Genitourinary: No Dysuria Musculoskeletal: Pain (Fibromyalgia and DJD) Psychiatric: Depression Exam Vital Signs Vital Signs Date Time Temp Pulse Resp B/P (MAP) Pulse Ox O2 Delivery O2 Flow Rate FiO2 09/26/18 04:00 66 20 82/67 (72) 94 09/26/18 00:30 98.3 09/25/18 22:00 Non-Rebreather 10.0 General Appearance: Alert, Awake, No Acute Distress, Other (Morbidly obese.) Neuro: No Gross deficits Eyes: PERRLA ENT: Moist Mucous Membranes Neck: No Masses Cardiovascular: Regular Rate and Rhythm (With 2-3/4 RAYMOND heard best at RUSB.) Respiratory: No Respiratory Distress, Clear to Auscultation (Anteriorly.) GI: Abd Soft and Non-Tender (Obese.) Lymph: Cervical Nodes Benign Extremities: Warm, Perfused, Edema, Other (Chronic venous stasis changes bilaterally.) Integumentary: Generalized Fragile Skin Psych: Appropriate Mood & Affect Medical Decision Making Data Points Result Diagram: 09/25/18210609/25/182106 Item Value Date Time Urine Color Yellow 09/26/18347 Urine Clarity Clear 09/26/18347 Urine pH 5.0 pH 09/26/18347 Urine Specific [place] 1.015 09/26/18347 Urine Protein 30 mg/dL 09/26/18347 Urine Glucose (UA) Negative mg/dL 09/26/18347 Urine Ketones Trace mg/dL 09/26/18347 Urine Blood Small 09/26/18347 Urine Nitrite Negative 09/26/18347 Urine Bilirubin Negative 09/26/18347 Urine Urobilinogen Negative mg/dL 09/26/18347 Urine Leukocyte Esterase Negative 09/26/18347 Urine RBC 2 /HPF 09/26/18347 Urine WBC 1 /HPF 09/26/18347 Urine Squamous Epithelial Cells Few /LPF 09/26/18347 Urine Transitional Epithelial Cells Few /LPF 09/26/18347 Urine Bacteria Negative /HPF 09/26/18347 Urine Mucus Few /HPF 09/26/18347 Influenza Virus Type A (PCR) Negative 09/25/182212 Influenza Virus Type B (PCR) Negative 09/25/182212 Lactate 1.1 mmol/L 09/25/18 0000 Calcium Level 8.4 mg/dl 09/25/182106 Magnesium Level 1.9 mg/dl 09/25/182106 Total Bilirubin 0.5 mg/dl 09/25/182106 Aspartate Amino Transf (AST/SGOT) 43 U/L H 09/25/182106 Alanine Aminotransferase (ALT/SGPT) 25 U/L 09/25/182106 Alkaline Phosphatase 119 U/L 09/25/182106 Total Protein 7.4 g/dl 09/25/182106 Albumin 3.6 g/dl 09/25/182106 Troponin I 0.016 ng/ml 09/25/182106 Troponin I < 0.012 ng/ml 09/26/18447 B-Type Natriuretic Peptide 268 pg/ml H 09/25/182106 Prothrombin Time 20.0 seconds H 09/25/182106 Prothromb Time International Ratio 1.68 09/25/182106 Blood cultures X 2 and urine culture are pending. EKG / Imaging EKG Interpretation FACILITY: [facility] - [place] PATIENT NAME: ROQUE BARRIOS : [id number] MR: [id number] V: [id number] EXAM DATE: ORDERING PHYSICIAN: MONIQUE AUGUST TECHNOLOGIST: IVETH Marx Reason : SOB Blood Pressure : / mmHG Vent. Rate : 085 BPM Atrial Rate : 085 BPM P-R Int : 174 ms QRS Dur : 080 ms QT Int : 346 ms P-R-T Axes : 045 039 069 degrees QTc Int : 411 ms Normal sinus rhythm Normal ECG When compared with ECG of 31-OCT-2013 16:40, No significant change was found Referred By: Confirmed By: 50 T: Imaging FACILITY: [facility] - [place] PATIENT NAME: Roque Barrios : 1940 MR: [id number] V: [id number] EXAM DATE: ORDERING PHYSICIAN: MONIQUE AUGUST TECHNOLOGIST: Location: [facility] [place] Patient: Roque Barrios : 1940 Visit/Account:[id number] Date of Sevice: 09/25/2018 EXAMINATION: CT Chest Without Contrast 09/25/2018 10:16 PM HISTORY: Cough, shortness of breath, low O2 sats. TECHNIQUE: Spiral scan was obtained through the chest without contrast. One of the following dose optimization techniques was utilized in the performance of this exam: Automated exposure control; adjustment of the mA and/or kV according to the patient's size; or use of an iterative reconstruction technique. Specific details can be referenced in the facility's radiology CT exam operational policy. COMPARISON STUDIES: Chest x-ray with acute abdominal series 11/27/2013. FINDINGS: Lungs / pleura: Small bilateral pleural effusions. Adjacent dependent parenchymal consolidation is probably simply atelectasis. No definite acute pneumonia. No airspace edema or interlobular septal thickening. No bronchiectasis or significant bronchial wall thickening. No mucoid impaction. There are a few 3 mm or less micronodules, largest in the lateral right middle lobe (series 3 image 47). Mediastinum / jose a: negative Heart / pericardium: negative Vessels: Atherosclerosis includes coronary disease. Musculoskeletal / Body wall: Degenerative changes in the spine and shoulders. Lymph node assessment: There probably some lower hilar lymph nodes on the left. Subcarinal lymph node 1.8 x 1.2 cm (series 2 image 44). Lateral AP window lymph node on the left 1.3 x 1.4 cm (image 35). Additional nonspecific mediastinal lymph nodes. No clear axillary or neck base adenopathy. Lower neck: negative Upper abdomen: Cholecystectomy. IMPRESSION: 1. Small bilateral pleural effusions. Adjacent consolidation is probably simply atelectasis. No definite focal pneumonia. 2. 3 mm or less pulmonary micronodules. Based on size these would not require follow-up unless otherwise clinically indicated. 3. Mild nonspecific mediastinal and probably left hilar adenopathy. 4. Atherosclerosis includes coronary disease. Report Dictated By: Carroll John MD at 09/26/2018 12:03 AM Report E-Signed By: Carroll John MD at 09/26/2018 12:14 AM WSN:[id number] FACILITY: [facility] [place] PATIENT NAME: Roque Barrios : 1940 MR: [id number] V: [id number] EXAM DATE: ORDERING PHYSICIAN: MONIQUE AUGUST TECHNOLOGIST: Location: [facility] [place] Patient: Roque Barrios : 1940 Visit/Account:[id number] Date of Sevice: 09/26/2018 EXAMINATION: CT of the right hip without contrast 09/26/2018 12:24 AM HISTORY: fall, hip pain TECHNIQUE: Unenhanced helical imaging of the right hip was done with imaging acquired in the axial plane. Sagittal and coronal reconstructions are provided from the source data. Data is reconstructed with soft tissue and bony reconstruction algorithms. One of the following dose optimization techniques was utilized in the performance of this exam: Automated exposure control; adjustment of the mA and/or kV according to the patient's size; or use of an iterative reconstruction technique. Specific details can be referenced in the facility's radiology CT exam operational policy. COMPARISON: CT abdomen and pelvis 07/02/2018 FINDINGS: Musculoskeletal: Severe osteoarthritis of the right hip. Virtually complete joint space loss. Prominent marginal osteophytes of the femoral head and acetabular margin. No significant inflammatory erosive component evident. No visible effusion. No fracture or other acute bony finding evident. Remainder of visualized bony pelvis is intact. Soft tissues: No focal soft tissue swelling or hematoma evident. No inguinal adenopathy. Atherosclerotic vascular calcifications. Patient is status post hysterectomy. Visualized bowel loops in the pelvis are unremarkable. IMPRESSION: Severe osteoarthritis of the right hip. No acute bony injury. Report Dictated By: Carroll John MD at 09/26/2018 1:09 AM Report E-Signed By: Carroll John MD at 09/26/2018 1:14 AM WSN:[id number] FACILITY: [facility] [place] PATIENT NAME: Roque Barrios : 1940 MR: [id number] V: [id number] EXAM DATE: ORDERING PHYSICIAN: MONIQUE AUGUST TECHNOLOGIST: Location: [facility] [place] Patient: Roque Barrios : 1940 Visit/Account:[id number] Date of Sevice: 09/25/2018 EXAMINATION: Right knee, 4 views 09/25/2018 9:39 PM HISTORY: fall, hip and knee pain COMPARISON: None FINDINGS: Previous right TKA. Prosthetic components are articulating appropriately and are well seated. No acute bony finding in the evident. No visible joint effusion although the lateral projection is not optimal. IMPRESSION: Previous right TKA. No acute bony finding. Report Dictated By: Carroll John MD at 09/26/2018 2:55 AM Report E-Signed By: Carroll John MD at 09/26/2018 2:57 AM WSN:[id number] Pre-Admit Course Medical Record Review: Yes Assessment and Plan Problems: (1) Fever Status: Acute Assessment & Plan: The patient presented with fever of 101.9. No obvious etiology for fever identified thus far. Blood and urine cultures pending. CT chest shows small bilateral pleural effusions with some adjacent simple atelectasis. No focal infiltrate identified. Monitor closely. (2) Hypoxia Status: Acute Assessment & Plan: The patient has acute worsening of her chronic hypoxia. She is subtherapeutic on her INR and has a history of PEs. She has an iodine allergy so pulmonary CTA could not be done. Consider VQ scan if possible with patient's weight. Will place on full dose Lovenox while increasing warfarin to get INR in therapeutic range. (3) Weakness generalized Status: Acute Assessment & Plan: Likely due to hypoxia, fever. Will have PT/OT see. (4) Skin breakdown Status: Acute Assessment & Plan: The patient has skin breakdown under her pannus and in the perineal area. Davis catheter placed to keep the area dry. Will have PT wound care see for recommendations. No evidence of cellulitis currently. (5) Pulmonary embolism Status: Chronic Assessment & Plan: The patient has hx of PE and has been subtherapeutic on INR. Will start full dose Lovenox and continue until INR is 2 or greater. Warfarin increased to 1mg 5 days a week and 1.5mg Tues and Thurs. Daily INR ordered. (6) Hypertension Status: Chronic Assessment & Plan: Continue Carvedilol 25mg bid. (7) Obstructive sleep apnea on CPAP Status: Chronic Assessment & Plan: Will see if the patient's can bring her CPAP machine. Continue O2. (8) Peripheral edema Status: Chronic Assessment & Plan: Chronic. Elevate legs. (9) Hypercholesteremia Status: Chronic Assessment & Plan: Not currently on treatment. (10) Fibromyalgia Status: Chronic Assessment & Plan: Continue Lyrica and Tramadol. (11) Morbid obesity with BMI of 60.0-69.9, adult Status: Chronic (12) Depression Status: Chronic Assessment & Plan: Continue venlafaxine. Time Spent on Plan of Care: < 30 min Copies to: MURTAZA MEJÍA MD ; Venous Thromboembolism Antithrombotics Is Pt On Any Antithrombotics?: Yes Exam Sepsis Risk: Possible Sepsis Risk Problem Qualifiers (1) Fever: Fever type: unspecified Qualified Codes: R50.9 - Fever, unspecified ESME BELLO MD September 26, 2018 06:22
[2018-09-26 06:37] VITALS: BP 144/81
[2018-09-26] MEDS: CHOLECALCIFEROL 1000 UNIT TAB PO SCH (07:47)
[2018-09-26] MEDS: traMADol 50 MG TAB PO PRN ×3 (07:47→22:10)
[2018-09-26] MEDS: PREGABALIN 50 MG CAPSULE PO SCH ×3 (07:47→20:59)
[2018-09-26] MEDS: CARVEDILOL 6.25 MG TAB PO SCH ×2 (07:48→20:58)
[2018-09-26] MEDS ORDERED: ENOXAPARIN 100 MG/ML SYR SC ONE (09:00)
[2018-09-26] MEDS: CEFEPIME HCL 2 GM VIAL IVP SCH ×2 (09:31→20:57)
[2018-09-26] MEDS ORDERED: VANCOMYCIN(*) 1 GM VIAL 2 GM in NS(*) 0.9% 500 ML BAG 500 ML IVPB ONE (10:00)
--- NOTE | 2018-09-26 10:01 | Miscellaneous Provider Note ---
Miscellaneous Provider Note Note It appears she may have some cellulitis-type changes under pannus/perineal area. Will place on cefepime and vancomycin for coverage of potential cellulitis. BANG BELLO MD September 26, 2018 10:01
[2018-09-26 10:24] VITALS: Ht 167.6 cm; Wt 176.4 kg
--- NOTE | 2018-09-26 12:31 | Antimicrobial Stewardship ---
Antimicrobial Stewardship Empiricly appropriate: Yes (Vancomycin + Cefepime) Significant PMH: Yes (HTN, HL, UTI, RTKA, PE) Comment Started on Vancomycin + Cefepime (Last hospital admission 07/05) Approriate Cultures done: Yes (UA, Urine Cx pending, Blood Cx pending) Determine cumulative duration: 09/26/18- Tx started with Vanc + Cefepime Determine standard duration: 7-10 days Comment 78 yo F who presented w/ myriad of symptoms: UTI sx, hypoxia/SOB, and confusion. Tmax 101.9 WBC 10.5 Neutrophils 77.5% TSH 5.53 BNP 268 Lactate 1.1 Blood Cx: NGTD Urine Cx: NGTD Physical Exam revealed excoriation of pannus with erythema Vancomycin 2g x 1, and 1.75g IV Q12H for possible cellulitis, recent hospital admission within 90 days, increased risk of MDRO. Will continue treatment with Vancomycin and Cefepime while awaiting cultures. Will follow closely. Malu Baron, PharmD, BCOP MALU BARON September 26, 2018 12:31
[2018-09-26 12:40] VITALS: BP 127/73
[2018-09-26] MEDS ORDERED: WARFARIN SOD 1 MG TAB PO SCH (13:00)
[2018-09-26] MEDS: VENLAFAXINE XR 37.5 MG CAPCR PO SCH (13:04)
[2018-09-26] MEDS: ACETAMINOPHEN 325 MG TAB PO PRN ×2 (13:04→20:59)
[2018-09-26 15:31] VITALS: BP 123/66
--- NOTE | 2018-09-26 16:03 | NUR ---
Physical Therapy Impression Hold PT wound eval. Pt is hyperanticoagulated and Dr. Hardik Foss has requested no additional mobility at this time. Nursing has already placed wicking fabric at skin folds of pannus and perianal area is being effectively addressed with catheter placement and use of barrier cream. PT will inspect and complete a more thorough physical skin eval once cleared by MD for further mobility. Physical Therapy Goals Patient's Goals
--- NOTE | 2018-09-26 16:45 | NUR ---
Physical Therapy Impression Hold eval today; re-check tomorrow; pt currently hyperanticoagulated. Physical Therapy Goals Patient's Goals
[2018-09-26 19:18] VITALS: BP 119/57
[2018-09-26] MEDS: VANCOMYCIN(*) 1 GM VIAL 1 GM, VANCOMYCIN HCL 0.750 GM VIAL 0.75 GM in NS(*) 0.9% 250 ML... IVPB SCH (22:11)
[2018-09-26 22:12] VITALS: BP 99/49
[2018-09-27 06:01] LABS: PLATELET COUNT, AUTOMATED 109 K/uL (150-450)
[2018-09-27 06:09] LABS: INR 1.89
[2018-09-27 08:01] VITALS: BP 120/90
[2018-09-27] MEDS: CEFEPIME HCL 2 GM VIAL IVP SCH (08:31)
[2018-09-27] MEDS: VENLAFAXINE XR 37.5 MG CAPCR PO SCH (08:32)
[2018-09-27] MEDS: CHOLECALCIFEROL 1000 UNIT TAB PO SCH (08:32)
[2018-09-27] MEDS: PREGABALIN 50 MG CAPSULE PO SCH ×3 (08:32→21:21)
[2018-09-27] MEDS: ACETAMINOPHEN 325 MG TAB PO PRN ×2 (08:33→17:13)
[2018-09-27] MEDS: VANCOMYCIN(*) 1 GM VIAL 1 GM, VANCOMYCIN HCL 0.750 GM VIAL 0.75 GM in NS(*) 0.9% 250 ML... IVPB SCH ×2 (09:54→21:19)
[2018-09-27 11:03] VITALS: BP 138/64
[2018-09-27] MEDS: CARVEDILOL 25 MG TABLET PO SCH ×2 (11:05→21:21)
--- NOTE | 2018-09-27 11:59 | NUR ---
Physical Therapy Impression PT eval completed. CO-treat with OT (who completed subjective eval yesterday) for pt safety. Treatment, following eval, completed as well with pt in bariatric recliner and left with nursing at end of session. Pt requires 2 person Max assist for bed mobility and transfers, and side steps with CGA once up to FWW. Pt would benefit from [facility] PT upon d/c home when medically appropriate. PT/OT co-treat for pt safety following completion of PT eval. Please refer to eval note regarding pt's level of functional mobility for this treatment session. Recommend d/c home with [facility] PT when medically appropriate. Physical Therapy Goals 1. Pt to be Min assist for sit to/from supine using hospital bed as needed. 2. Pt to be Min assist for sit to/from stand with use of FWW 3. Pt to be Min assist for [id number] transfer to/from a variety of surfaces to simulate home environment. Patient's Goals
[2018-09-27] MEDS ORDERED: WARFARIN SOD 1 MG TAB PO SCH ×2 (13:00)
--- NOTE | 2018-09-27 13:21 | Pharmacy Note ---
Vancomycin Management Note Vanco Dosing Note Pharmacy Services Pharmacokinetic Dosing Consult, Vancomycin Pharmacy has been consulted for dosing and monitoring of vancomycin for 78 yo female for possible cellulitis. Pertinent Past Medical History: HTN,HL,UTI,RTKA,PE Antibiotics prior to admission; unknown Additional Antimicrobials: Cefepime 2 gm IV q12h started 09/26/18 dcd 09/27/18 Ceftriaxone 2 gm IVP daily started 09/27/18 Patient Information: Height (cm): 167.64 Actual Body Weight (ABW): 176.4 kg; AdjBW 106.1 kg; IBW 59.3 kg Pertinent Lab Tests WHITE BLOOD COUNT 10.5-->5.8 NEUTROPHILS 10.5-->68 SCR 0.8--> 0.6 (using 0.8 for calc) VANCOMYCIN RANDOM 14.63 09/27/18 (before 3rd dose) Culture Results: BLOOD growing gram positive cocci URINE growing gram negative rods Assessment: CrCl 56 ml/min IBW; 100 ml/min AdjBW Renal function is Stable Vancomycin Monitoring Assessment Goal Vancomycin Trough Level: 10-20 Plan: 1) Vancomycin 25 mg/kg loading dose (based on ABW): 2000 mg IV x 1 2) Vancomycin maintenance dose (based on ABW): 1750 mg IV q12h 3) Vancomycin monitoring: Tr drawn on 09/27/18 099 was 14.63 so keeping dose the same and check Tr tomorrow at 0900. Pharmacy will continue to monitor daily and adjust regimen as appropriate. Thank you for the consult. FARHAN WISE September 27, 2018 13:21
--- NOTE | 2018-09-27 14:25 | NUR ---
Physical Therapy Impression PT wound eval completed. No signs of wounds that require debridement at this time, in areas that were able to be inspected. To all skin folds, PT applied wicking pads to minimize moisture and to avoid skin on skin contact. Pt's left side abdominal fold demos increased odor and shiny denuded skin with appearance of fungal infection. This was conveyed to nursing and [facility] hospitalist. Pt is unable to separate LE's due to extreme R) hip pain and thus, tissue between legs, in perianal area can not be fully visualized. Pt had previously been sitting in recliner on a chucks pad, however, pt does also have a mulligan catheter in place. When she stood to transfer back to bed, it was noted that chucks pad was saturated with urine. Nursing completed pericare and noted a small superficial skin opening at buttocks that orange cream will be applied to. PT will attempt further inspection of skin in standing at next visit if pt is able to remain safely upright for that period of time. Physical Therapy Goals 1. Pt to be Min assist for sit to/from supine using hospital bed as needed. 2. Pt to be Min assist for sit to/from stand with use of FWW 3. Pt to be Min assist for [id number] transfer to/from a variety of surfaces to simulate home environment. Patient's Goals
--- NOTE | 2018-09-27 15:09 | NUR ---
Occupational Therapy Impression Max Ax2 supine to sit bed mobility. Max Ax2 sit<>standx2. CGA stand pivot with RW once standing. Pt has a toilet aid at home that improved (I) with toileting. VSS throughout. Recommend home with HH services when medically appropriate. Occupational Therapy Goals 1) Pt will be Min A toileting. 2) Pt will be SBA grooming seated. 3) Pt will be Min A UB/LB dressing. Patient's Goal
--- NOTE | 2018-09-27 15:54 | RADIOLOGY IMAGING REPORT ---
FACILITY: [facility] PATIENT NAME: Chastity Barrios : 1940 MR: [id number] V: [id number] EXAM DATE: ORDERING PHYSICIAN: ADILENE ANGELES TECHNOLOGIST: [facility] Patient: Chastity Barrios : 1940 Visit/Account:[id number] Date of Sevice: 09/27/2018 Study: ANKLE 3 VIEW MIN LEFT Indication: Ankle pain and swelling Comparison study: None available Findings: AP lateral and oblique views of the left ankle demonstrates at the distal radius and ulna a re unremarkable. There is a large dorsal calcaneal enthesophyte present. There is no evidence of abnormality of the ankle mortise joint. IMPRESSION: No acute bony abnormality identified. Report Dictated By: Allen Brown at 09/27/2018 3:45 PM Report E-Signed By: Allen Brown at 09/27/2018 3:49 PM WSN:[id number]
--- NOTE | 2018-09-27 16:06 | Hospitalist Progress Note ---
Subjective Progress Notes Subjective 78F admitted for SOB. ERVIN overnight, without new concern this am. Physical Exam Vital Signs Date Time Temp Pulse Resp B/P (MAP) Pulse Ox O2 Delivery O2 Flow Rate FiO2 09/27/18 14:31 69 09/27/18 11:03 98.1 20 138/64 (88) 91 High-Flow Nasal Cannula 3.0 Intake and Output 09/27/18 07:00 Intake Total 2141 ml Output Total 2701 ml Balance -560 ml Intake Oral 760 ml IV Total 1381 ml Output Urine Total 2700 ml Stool Total 1 ml General Appearance: Alert, Awake, No Acute Distress Neuro: No Gross deficits Cardiovascular: Normal Rhythm & Peripheral Pulses Respiratory: No Respiratory Distress Extremities: Soft and Non Tender, Warm, Pulses, Perfused, Edema Result Diagram: 09/27/1853209/27/18532 Assessment and Plan Problems: (1) Fever Status: Acute Assessment & Plan: The patient presented with fever of 101.9. No obvious etiology for fever identified thus far. Blood culture 1/2 growing GPC, likely contaminant. CT chest shows small bilateral pleural effusions with some adjacent simple atelectasis. No focal infiltrate identified. She is on ceftriaxone and azithromycin for presumed cellulitis. (2) Severe aortic stenosis Assessment & Plan: Per echocardiogram. Will follow up outpatient to evaluate for TAVR. (3) Hypoxia Status: Acute Assessment & Plan: The patient has acute worsening of her chronic hypoxia. She is subtherapeutic on her INR and has a history of PEs. She has an iodine allergy so pulmonary CTA could not be done. Consider VQ scan if possible with patient's weight. Will place on full dose Lovenox while increasing warfarin to get INR in therapeutic range. Likely this is due to aortic stenosis. (4) Weakness generalized Status: Acute Assessment & Plan: Likely due to hypoxia, fever. Will have PT/OT see. (5) Skin breakdown Status: Acute Assessment & Plan: The patient has skin breakdown under her pannus and in the perineal area. Davis catheter placed to keep the area dry. Will have PT wound care see for recommendations. No evidence of cellulitis currently. (6) Pulmonary embolism Status: Chronic Assessment & Plan: The patient has hx of PE and has been subtherapeutic on INR. Will start full dose Lovenox and continue until INR is 2 or greater. Warfarin increased to 1mg 5 days a week and 1.5mg Tues and Thurs. Daily INR ordered. (7) Hypertension Status: Chronic Assessment & Plan: Continue Carvedilol 25mg bid. (8) Obstructive sleep apnea on CPAP Status: Chronic Assessment & Plan: Will see if the patient's can bring her CPAP machine. Continue O2. (9) Peripheral edema Status: Chronic Assessment & Plan: Chronic. Elevate legs. (10) Hypercholesteremia Status: Chronic Assessment & Plan: Not currently on treatment. (11) Fibromyalgia Status: Chronic Assessment & Plan: Continue Lyrica and Tramadol. (12) Morbid obesity with BMI of 60.0-69.9, adult Status: Chronic (13) Depression Status: Chronic Assessment & Plan: Continue venlafaxine. Exam Sepsis Risk: No Definite Risk Problem Qualifiers (1) Fever: Fever type: unspecified Qualified Codes: R50.9 - Fever, unspecified GONZALEZ CUELLO DO September 27, 2018 16:06
[2018-09-27 16:12] VITALS: BP 141/50
[2018-09-27] MEDS ORDERED: cefTRIAXone 2 GM VIAL IVP SCH (21:00)
[2018-09-27 21:13] VITALS: BP 128/65
[2018-09-27] MEDS: NYSTATIN 100,000 U/GM PWD 15GM TP SCH (21:20)
[2018-09-28 05:22] VITALS: BP 142/71
[2018-09-28 06:44] LABS: INR 1.98
[2018-09-28 07:21] VITALS: BP 143/71
[2018-09-28] MEDS: NYSTATIN 100,000 U/GM PWD 15GM TP SCH (09:00)
[2018-09-28] MEDS: CARVEDILOL 25 MG TABLET PO SCH (09:43)
[2018-09-28] MEDS: PREGABALIN 50 MG CAPSULE PO SCH ×2 (09:43→13:22)
[2018-09-28] MEDS: VENLAFAXINE XR 37.5 MG CAPCR PO SCH (09:43)
[2018-09-28] MEDS: CHOLECALCIFEROL 1000 UNIT TAB PO SCH (09:43)
[2018-09-28] MEDS: VANCOMYCIN(*) 1 GM VIAL 1 GM, VANCOMYCIN HCL 0.750 GM VIAL 0.75 GM in NS(*) 0.9% 250 ML... IVPB SCH (10:45)
--- NOTE | 2018-09-28 11:53 | NUR ---
Physical Therapy Impression Pt was co-treated with OT. Pt used a momentum strategy to tf from sit to stand, with the assistance of a walker and CGA of 2. Pt used a stand pivot to transfer on to the commode. Following a bowel movement, the Pt transfered back to the chair. Min assistance for sit to stand tf from commode. Pt was left in reclining chair with all needs met and call light in reach. HH was recommended at discharge. Physical Therapy Goals 1. Pt to be Min assist for sit to/from supine using hospital bed as needed. 2. Pt to be Min assist for sit to/from stand with use of FWW 3. Pt to be Min assist for [id number] transfer to/from a variety of surfaces to simulate home environment. Patient's Goals
--- NOTE | 2018-09-28 11:56 | NUR ---
Occupational Therapy Impression CGA sit<>stand from chair and Min A sit<>stand BSC. SBA stand pivot with RW-chair<>BSC and BSC<>chair. Max Ax1 cory-care, pt has toilet aid at home. Pt has lift chair at home that assists with (I) and safety for transfers. Recommend HH services at discharge. Occupational Therapy Goals 1) Pt will be Min A toileting. 2) Pt will be SBA grooming seated. 3) Pt will be Min A UB/LB dressing. Patient's Goal
--- NOTE | 2018-09-28 12:48 | NUR ---
This Physical Therapist or Power Checker was present for the entire physical therapy session directing the services, making the skilled judgement, and was not engaged in treating another patient or doing another task at the same time as the treatment session. Addendum: 09/28/18 at 1250 by LIZA HUDSON PT Amended: Links added.
--- NOTE | 2018-09-28 12:51 | NUR ---
PHYSICAL THERAPY INFORMATION TRANSFER SHEET BED MOBILITY: Maximum Assistance 2 person assist TRANSFERS: 2 person assist CGA GAIT: 6 ' with O2 RW and Minimum Assistance CGA Weightbearing Status: STAIRS: with . EXERCISES: Verbalizes Needs: Yes Understands Directions Yes Cooperative: Yes Family Teaching: No Physical Therapy Comment:
[2018-09-28] MEDS ORDERED: WARFARIN SOD 1 MG TAB PO SCH (13:00)
[2018-09-28] MEDS: ACETAMINOPHEN 325 MG TAB PO PRN (13:24)
[2018-09-28] MEDS ORDERED: WARF1TAB15 PO ×2 (13:58)
--- NOTE | 2018-09-28 14:22 | Hospitalist Depart ---
Discharge Summary Reason for Hosp/Final Diag: (1) Fever Status: Acute Hospital Course & Plan: The patient presented with fever of 101.9. No obvious etiology for fever identified. Afebrile since admission. WBC wnl. Blood culture 1/2 growing Staph Epi, which is contaminant. CT chest shows small bilateral pleural effusions with some adjacent simple atelectasis. No focal infiltrate identified. She was on ceftriaxone and azithromycin for presumed cellulitis. Those have been stopped. Likely, she had a viral illness that has resolved. (2) Severe aortic stenosis Hospital Course & Plan: Per echocardiogram. She is not decompensated by exam or symptoms. Dr. Buenrostro (Cardiology) saw her in the hospital. Will have her keep to a fluid restriction of 2 liters in 24 hours. She is to follow as an outpatient to evaluate for TAVR. See below. (3) Hypoxia Status: Acute Hospital Course & Plan: The patient had acute worsening of her chronic hypoxia. Chest CT clear. Likely this is due to aortic stenosis. (4) Weakness generalized Status: Acute Hospital Course & Plan: Likely due to hypoxia, fever, but had been on nitrofurantoin for about 7-9 days prior to admission. Will have her stop the nitrofurantoin. Seen by PT/OT. Cleared to go home with HH. The patient feels comfortable going home. (5) Skin breakdown Status: Acute Hospital Course & Plan: The patient had skin breakdown under her pannus and in the perineal area. Davis catheter was placed to keep the area dry. The skin was treated with Nystatin and dried with pads. Skin is normal and healthy. D/C Davis. Recommend continued use of drying pads and Nystatin prn. (6) Pulmonary embolism Status: Chronic Hospital Course & Plan: The patient has hx of PE and was subtherapeutic on INR. She was given full dose Lovenox. Now INR is 1.98. INR in 2 days. (7) Hypertension Status: Chronic Hospital Course & Plan: Continue Carvedilol 25mg bid. (8) Peripheral edema Status: Chronic Hospital Course & Plan: Chronic. Elevate legs. (9) Fibromyalgia Status: Chronic Hospital Course & Plan: Continue Lyrica and Tramadol. (10) Depression Status: Chronic Hospital Course & Plan: Continue venlafaxine. (11) Morbid obesity with BMI of 60.0-69.9, adult Status: Chronic Departure Weight (Pounds): 388 Weight (Ounces): 15.0 Result Diagram: 09/27/1853209/27/18532 Item Value Date Time Lactate 1.1 mmol/L 09/25/18 0000 B-Type Natriuretic Peptide 268 pg/ml H 09/25/182106 Troponin I < 0.012 ng/ml 09/26/18447 Troponin I 0.016 ng/ml 09/25/182106 Magnesium Level 1.9 mg/dl 09/25/182106 Total Bilirubin 0.5 mg/dl 09/25/182106 Aspartate Amino Transf (AST/SGOT) 43 U/L H 09/25/182106 Alanine Aminotransferase (ALT/SGPT) 25 U/L 09/25/182106 Alkaline Phosphatase 119 U/L 09/25/182106 Thyroid Stimulating Hormone (TSH) 5.53 uIU/ml H 09/26/18447 Total Bilirubin 0.4 mg/dl 09/27/18532 Aspartate Amino Transf (AST/SGOT) 30 U/L 09/27/18532 Alanine Aminotransferase (ALT/SGPT) 31 U/L 09/27/18532 Alkaline Phosphatase 93 U/L 09/27/18532 Neutrophils (%) (Auto) 77.5 % H 09/25/182106 Lymphocytes (%) (Auto) 10.3 % L 09/25/182106 Monocytes (%) (Auto) 9.5 % 09/25/182106 Eosinophils (%) (Auto) 2.3 % 09/25/182106 Basophils (%) (Auto) 0.4 % 09/25/182106 Nucleated RBC Relative Count (auto) 0.1 /100WBC 09/25/182106 Neutrophils (%) (Auto) 68.0 % 09/27/18532 Lymphocytes (%) (Auto) 14.4 % L 09/27/18532 Monocytes (%) (Auto) 13.8 % H 09/27/18532 Eosinophils (%) (Auto) 3.4 % 09/27/18532 Basophils (%) (Auto) 0.4 % 09/27/18532 Nucleated RBC Relative Count (auto) 0.0 /100WBC 09/27/18532 Urine RBC 45 /HPF 09/25/182302 Urine WBC 2 /HPF 09/25/182302 Urine Squamous Epithelial Cells Many /LPF H 09/25/182302 Urine RBC 2 /HPF 09/26/18347 Urine WBC 1 /HPF 09/26/18347 Urine Squamous Epithelial Cells Few /LPF 09/26/18347 Urine Leukocyte Esterase Negative 09/25/182302 Urine Nitrite Negative 09/25/182302 Urine Nitrite Negative 09/26/18347 Urine Leukocyte Esterase Negative 09/26/18347 Urine Blood Small 09/26/18347 Urine Blood Large 09/25/182302 Urine Transitional Epithelial Cells Few /LPF 09/26/18347 Urine Bacteria Negative /HPF 09/26/18347 Urine Bacteria Negative /HPF 09/25/182302 Influenza Virus Type A (PCR) Negative 09/25/182212 Influenza Virus Type B (PCR) Negative 09/25/182212 Prothromb Time International Ratio 1.98 09/28/18523 Blood culture with 1 of 2 positive for Staph Epi SPEC #: [id number] RAMYA: 09/25/18 STATUS: RES REQ #: [id number] RECD: 09/25/[address]: MONIQUE AUGUST MD SOURCE: PHOEBE ENTR: 09/25/[address]: MURTAZA MEJÍA MD SPDESC: ORDERED: CULT URINE Procedure Result Verified URINE CULTURE Preliminary 09/28/18-1200 Organism 1 GRAM NEGATIVE WILLIE <10,000 COL/ML ID AND SENSITIVITY TO FOLLOW Organism 2 GRAM POSITIVE WILLIE-DIPHTHEROIDS >100,000 COL/ML Organism 3 LACTOBACILLUS <10,000 COL/ML Imaging 09/27/18 Ankle Xray - 09/25/18 09/26/18 Echo - See official report - EF 55-60%, severe , LV normal size 09/26/[address] - Severe osteoarthritis of the right hip. No acute bony injury. 09/25/[address] - 1. Small bilateral pleural effusions. Adjacent consolidation is probably simply atelectasis. No definite focal pneumonia. 2. 3 mm or less pulmonary micronodules. Based on size these would not require follow-up unless otherwise clinically indicated. 3. Mild nonspecific mediastinal and probably left hilar adenopathy. 4. Atherosclerosis includes coronary disease. 09/25/18 Knee Xray - Previous right TKA. No acute bony finding. EKG Vent. Rate : 085 BPM Atrial Rate : 085 BPM P-R Int : 174 ms QRS Dur : 080 ms QT Int : 346 ms P-R-T Axes : 045 039 069 degrees QTc Int : 411 ms Normal sinus rhythm Normal ECG When compared with ECG of 31-OCT-2013 16:40, No significant change was found Confirmed by ESME GANNON ([id number]) on 09/26/2018 6:28:45 AM Condition: Improved PT/OT Follow Up For: PT For Strengthening, PT Evaluation and Treat Discharge Instructions Home Meds Active Scripts Tramadol Hcl (TRAMADOL HCL) 50 Mg Tablet, 50 MG PO Q6H PRN for PAIN, #60 TAB Prov:[facility] AN[facility]ELES [facility] 07/07/18 Nystatin (NYAMYC) 15 Gm Powder, 1 GM TP BID, #30 GM Prov:ADILENE ANGELES [facility] 07/07/18 Cyclobenzaprine Hcl (CYCLOBENZAPRINE HCL) 10 Mg Tablet, 5 MG PO Q8H PRN for MUSCLE SPASMS, #20 TAB Prov:[facility]ILENE ANGELES [facility] 07/07/18 Reported Medications Warfarin Sodium (WARFARIN SODIUM) 1 Mg Tablet, 1.5 MG PO daily on /Wed, TAB 09/28/18 Warfarin Sodium (WARFARIN SODIUM) 1 Mg Tablet, 1 MG PO Daily Parkinson/Mo///Fr, TAB 09/28/18 Cholecalciferol (Vitamin D3) (VITAMIN D3) 1,000 Unit Tablet, 2000 UNIT PO QDAY, TAB 06/29/18 Ascorbic Acid (VITAMIN C) 500 Mg Tablet, 500 MG PO QDAY, TAB 06/29/18 Multivitamin (MULTIVITAMINS) 1 Each Capsule, 1 EACH PO QDAY, CAPSULE 06/29/18 Carvedilol (CARVEDILOL) 25 Mg Tablet, 25 MG PO BID, #10 TAB 06/29/18 Pregabalin (LYRICA) 150 Mg Capsule, 150 MG PO TID, CAPSULE 06/29/18 Venlafaxine Hcl (VENLAFAXINE HCL ER) 37.5 Mg Cap.er.24h, 37.5 MG PO QDAY 11/08/13 Discontinued Reported Medications Nitrofurantoin Macrocrystal (NITROFURANTOIN) 50 Mg Capsule, 50 MG PO QDAY, CAPSULE 09/26/18 Cephalexin 500 Mg Tab (KEFLEX 500 MG TAB) 500 Mg Tablet, 500 MG PO BID, #28 TAB Starting on July 14 take twice a day 07/07/18 Cephalexin 500 Mg Tab (KEFLEX 500 MG TAB) 500 Mg Tablet, 500 MG PO QID for 7 Days, TAB Take Four times a day for 7 days then twice a day thereafter 07/07/18 Discontinued Scripts Docusate Sodium (COLACE) 100 Mg Capsule, 100 MG PO BID, #60 CAPSULE Prov:[facility]ILENE ANGELES [facility] 07/07/18 Enoxaparin Sodium (ENOXAPARIN SODIUM) 40 Mg/0.4 Ml Disp.syrin, 40 MG SC QDAY, #5 SYR Prov:ADILENE ANGELES [facility] 07/07/18 Diet: Diabetic, Fluid Restricted Special Instructions: Drink only 2 quarts of liquid daily. INR in 2 days Follow up with your PCP in 1-2 weeks Call [phone] Marilin Diop RN at [facility] at the [facility], adjacent to [facility], after discharge to schedule heart valve evaluation. Copies to: MURTAZA MEJÍA MD; DINO BUENROSTRO MD ; Venous Thromboembolism Antithrombotics Is Pt On Any Antithrombotics?: Yes Problem Qualifiers (1) Fever: Fever type: unspecified Qualified Codes: R50.9 - Fever, unspecified MOHAN SCHILLING MD September 28, 2018 14:22
== END 2018-09-28 16:15 | disposition home health service (06) | DRG 307 ==
LOC: ER 21:13 → MED 09-26 05:38
PROVIDERS: ADMIT Internal Medicine; ATTEND Internal Medicine
DX: I35.0 Nonrheumatic aortic (valve) stenosis (principal); L03.315 Cellulitis of perineum; Z68.44 Body mass index [BMI] 60.0-69.9, adult; R09.02 Hypoxemia; R79.1 Abnormal coagulation profile; R53.1 Weakness; I10 Essential (primary) hypertension; R60.9 Edema, unspecified; M79.7 Fibromyalgia; F32.9 Major depressive disorder, single episode, unspecified; E66.01 Morbid (severe) obesity due to excess calories; G47.33 Obstructive sleep apnea (adult) (pediatric); E78.00 Pure hypercholesterolemia, unspecified; Z88.5 Allergy status to narcotic agent; Z86.711 Personal history of pulmonary embolism; Z79.01 Long term (current) use of anticoagulants; Z88.8 Allergy status to other drugs, medicaments and biological substances; Z90.49 Acquired absence of other specified parts of digestive tract
CPT/HCPCS: 36415; 71250; 73564; 80202; 81001; 82040; 82247; 82310; 82374; 82435; 82565; 82947; 83605; 83735; 83880; 84075; 84132; 84155; 84295; 84443; 84450; 84460; 84484; 84520; 85025; 85520; 85610; 87040; 87077; 87088; 87186; 87502; 93005; 93306; 94640; 96360; 96361; 96374; 96375; 97161; 97162; 97165; 99284; 99285; A4353; C1758; J0692; J0696; J1650; J2704; J3010; J3370; J7030; J7040; J7050

== ENCOUNTER → 2018-09-25 | Outpatient (CLI) | payer MEDICARE, BC ==
[~2018-09-25] MED LIST changes: -BENGAY TP; +METH57CR TP; +NITR50CA35 PO
[2018-09-26 10:24] VITALS: BMI 62.6
== END ==
LOC: AMB 20:33
PROVIDERS: ATTEND Nurse Practitioner
DX: M25.561 Pain in right knee (principal); M54.9 Dorsalgia, unspecified; G89.29 Other chronic pain; R06.00 Dyspnea, unspecified
CPT/HCPCS: A0425; A0427

== ENCOUNTER → 2018-09-28 | Outpatient (CLI) | payer MEDICARE, BC ==
[2018-09-26 10:24] VITALS: BMI 62.6
[~2018-09-28] MED LIST changes: +NITR50CA35 PO
== END ==
LOC: AMB 16:07
PROVIDERS: ATTEND Nurse Practitioner
DX: M79.605 Pain in left leg (principal); M79.604 Pain in right leg; Z99.81 Dependence on supplemental oxygen; E66.01 Morbid (severe) obesity due to excess calories
CPT/HCPCS: A0425; A0428

== ENCOUNTER → 2018-10-21 | Outpatient (CLI) | payer MEDICARE, BC ==
[2018-09-26 10:24] VITALS: BMI 62.6
== END ==
LOC: LAB 11:28
PROVIDERS: ATTEND Internal Medicine Cardiovascular Disease
DX: I35.0 Nonrheumatic aortic (valve) stenosis (principal)
CPT/HCPCS: 36415; 82310; 82374; 82435; 82565; 82947; 84132; 84295; 84520

== ENCOUNTER → 2018-11-29 | Outpatient (REF) | payer MEDICARE, BC ==
[2018-09-26 10:24] VITALS: BMI 62.6
== END ==
LOC: ZZSENDIN 16:50
PROVIDERS: ATTEND Family Medicine
DX: R06.00 Dyspnea, unspecified (principal)
CPT/HCPCS: 83880